=== PATIENT | male | born 1985 | race Caucasian/White ===

== ENCOUNTER 2017-08-04 11:44 | Emergency (ER) | payer OTHER ==
[~2017-08-04] VITALS: Ht 175.3 cm; Wt 65.8 kg
[2017-08-04 11:50] VITALS: BP 117/74
--- NOTE | 2017-08-04 12:16 | NUR ---
PT WAS MEDICALLY CLEARED BY MD. DEVRIES TO BOOK.
== END 2017-08-04 12:18 ==
LOC: ER 11:47
DX: Z02.89 Encounter for other administrative examinations (principal); T71.162A Asphyxiation due to hanging, intentional self-harm, initial encounter
CPT/HCPCS: A4606; Z7610